=== PATIENT | male | born 1960 | race Two or more races ===

== ENCOUNTER 2022-06-17 09:20 | Emergency (ER) | payer OTHER ==
[~2022-06-17] VITALS: Ht 177.8 cm; Wt 74.8 kg
[2022-06-18] MEDS ORDERED: TOBRADEX ST EYE5 ML OP (09:00)
== END 2022-06-17 10:44 | disposition home or self-care (01) ==
LOC: ER 09:20
DX: H10.89 Other conjunctivitis (principal)

== ENCOUNTER 2022-06-18 08:47 | Emergency (ER) | payer OTHER ==
[~2022-06-18] VITALS: Ht 177.8 cm; Wt 74.8 kg
[2022-06-18] MEDS ORDERED: TOBRADEX ST EYE5 ML OP (09:00)
== END 2022-06-18 10:55 | disposition home or self-care (01) ==
LOC: ER 08:47
DX: H10.89 Other conjunctivitis (principal)